=== PATIENT | female | born 1970 | race Hispanic/Latino ===

== ENCOUNTER 2018-01-17 07:43 | Inpatient (IN) | payer OTHER ==
[2018-01-11 08:41] VITALS: BMI 32.5
[2018-01-17 08:43] LABS: BASO % 0.2 % (0.0-2.0); EOS # 0.2 K/uL (0.0-0.7); EOS % 2.5 % (0.0-4.0); HEMOGLOBIN 12.6 g/dL (12.0-16.0); LYMPH # 2.2 K/uL (1.0-4.3); LYMPH % 23.6 % (20.0-40.0); MEAN CELL VOLUME 88.7 fl (81.0-99.0); MEAN CORPUSCULAR HEMOGLOBIN 28.3 pg (27.0-31.0); MEAN CORPUSCULAR HGB CONC 31.9 g/dL (33.0-37.0); MEAN PLATELET VOLUME 8.1 fl (7.2-11.7); MONO # 0.5 K/uL (0.0-0.8); MONO % 5.8 % (0.0-10.0); NEUT # 6.3 K/uL (1.8-7.0); NEUT % 67.9 % (50.0-75.0); NRBC % 0.1 % (0.0-0.0); RBC 4.44 Mil/uL (3.80-5.20); RED CELL DISTRIBUTION WIDTH 14.2 % (11.5-14.5); WHITE BLOOD COUNT 9.3 K/uL (4.8-10.8)
[2018-01-17] MEDS ORDERED: Bupivacaine HCl 0.5% PF (30 ml) Inj ONE (09:20)
[2018-01-17] MEDS ORDERED: Silver Nitrate Topical - Stick ONE (09:20)
[2018-01-17] MEDS ORDERED: Lactated Ringer's 1,000 ML IV ONE ×2 (10:15→11:34)
[2018-01-17] MEDS ORDERED: Midazolam 2 MG/2 ML VIAL ONE (10:18)
[2018-01-17] MEDS ORDERED: Propofol 10 mg/ml Inj (20 ML) ONE (10:22)
[2018-01-17] MEDS ORDERED: ePHEDrine 50 mg/ml Inj ONE (10:22)
[2018-01-17] MEDS ORDERED: Rocuronium 10 mg/ml (5 ml) ONE (10:24)
[2018-01-17] MEDS ORDERED: Succinylcholine 200 mg/10 ml Inj IV ONE (10:24)
[2018-01-17] MEDS ORDERED: Lidocaine 4% (Laryng-O-Jet) Kit MM ONE (10:24)
[2018-01-17] MEDS ORDERED: Phenylephrine 10 mg/ml Inj ONE (10:27)
[2018-01-17] MEDS ORDERED: Bupivacaine 0.5% Inj(30mL) IJ ONE (10:45)
[2018-01-17] MEDS ORDERED: Dexamethasone 4 mg/1 ml ONE (10:55)
[2018-01-17] MEDS ORDERED: Silver Nitrate Topical - Stick TOP ONE (11:30)
[2018-01-17] MEDS ORDERED: Neostigmine 1:1000 (1 mg/ml) Inj ONE (12:08)
[2018-01-17] MEDS ORDERED: DiphenhydrAMINE 50 mg/ml Inj IVP PRN (12:51)
[2018-01-17] MEDS ORDERED: Naloxone 0.4 mg/ml Inj (Adult) IVP PRN (12:52)
[2018-01-17] MEDS ORDERED: HYDROmorphone 0.5 mg/0.5 ml ISec ONE (13:04)
[2018-01-17] MEDS: HYDROmorphone 0.5 mg/0.5 ml ISec IVP PRN ×4 (13:05→13:35)
[2018-01-17] MEDS ORDERED: Oxycodone/Acetaminophen 5/325 mg Tab PO PRN (14:41)
[2018-01-17] MEDS ORDERED: Lactated Ringer's 1,000 ML IV SCH (14:45)
[2018-01-17] MEDS: Lactated Ringer's 1,000 ML IV SCH (15:09)
--- NOTE | 2018-01-17 15:11 | OP ---
PROCEDURE DATE: 01/17/2018 SURGEON: Osorio Phillips MD MINING HELPER: Milton Falcon MD ANESTHESIOLOGIST: Elisabet Saunders MD TYPE OF ANESTHESIA: General endotracheal. PREOPERATIVE DIAGNOSES: 1. Incapacitating pelvic pain. 2. Incapacitating abdominal pain. 3. Abnormal uterine bleeding. 4. History of pelvic endometriosis . 5. History of pelvic adenomyosis POSTOPERATIVE DIAGNOSES: 1. Incapacitating pelvic pain. 2. Incapacitating abdominal pain. 3. Abnormal uterine bleeding. 4. History of pelvic endometriosis . 5. History of pelvic adenomyosis PROCEDURES PERFORMED: 1. Exam under anesthesia. 2. Cystoscopy. 3. Bilateral ureteral catheterization and injection of IC-Green dye. 4. Robotic da Libertad operative laparoscopy. 5. Robotic total hysterectomy 6. Robotic Bilateral salpingectomy Dr. Falcon to dictate ureterolysis separately COMPLICATIONS: None. SAMPLES SENT: 1. endometriosis. 2. uterus and cervix 3. left and right fallopiamn tubes INDICATION FOR THE PROCEDURE AND CONSENT: The patient had a long history of pelvic pain, dysmenorrhea, dyspareunia, abdominal pain, and bladder pain. The patient had been thoroughly evaluated and counseled regarding the pros and cons of the procedure, the reasonable alternatives, and possible complications. She understood and accepted the risks involved. Literature was provided to the patient. The patient was understanding and given her history and per surgical exam, she was at high risk in an average patient. She accepted all the risks involved, and all the questions had been answered to her satisfaction. FINDINGS OF SURGERY: Genitalia: Normal external genitalia, cervix without lesion and polyps. Hysteroscopy: Hysteroscopy shows a clear uterine cavity with no polyps or masses noticed. Cystoscopy: The cystoscopy was performed to rule out endometriosis and also any interstitial cystitis and also injury. The bladder was normal with no evidence of stone, trigonitis, or cystitis. A positive jet flow was identified in both ureters. Laparoscopy: The upper abdomen appeared to be normal. Gallbladder was normal. Liver edges appeared to be normal. Ascending colon and transverse were normal. There was evidence of adhesions, fibrosis, and endometriosis of the rectovaginal and pelvic sidewalls.The uterus was enlarged and boggy. DESCRIPTION OF THE PROCEDURE: Initiation of the case: After adequate anesthesia was obtained, the patient was placed in the dorsal lithotomy position, and with extreme care, placement of the patient with hyperextension and hyperflexing of the hips. At this point, the patient was prepped and draped. The surgeon was gowned and gloved. A timeout was taken according to the hospital procedure and the procedure was started. At this point, we performed cystoscopy, bilateral ureteral catheterization. A cystoscope was inserted into the bladder under direct visualization and the bladder was visualized. The bladder was free of lesions and tumors. There was no evidence of interstitial cystitis, and there was only mild amount of trigonitis. At this point, both ureters were identified and appeared to be in their normal anatomical position. At this point, utilizing an open 5-Latvian open-ended catheter, the left ureter was catheterized all the way to the distal ureter, and 5 mL of IC-Green was injected into this ureter. Similarly, the contralateral ureter was catheterized all the way to the distal ureter, and 5 mL of IC-Green was injected into the distal ureter. At this point, the stents were removed, and the cystoscope was removed, and the 16-Latvian Espinoza was inserted into the bladder. At this point, we proceeded with placement of a trocar and docking of the da Libertad Xi robot. The surgeon was re-gowned and gloved, and open laparoscopy was performed by making incision in the umbilicus and the fascia was incised. The peritoneum was entered in a blunt fashion, and the cannula was inserted under direct visualization. The abdomen was insufflated, and under direct visualization, three additional ports were inserted in the left upper quadrant, left mid quadrant, and right upper quadrant. At this point, the da Libertad Xi robot was brought into the field and docked, and the instruments were inserted under direct visualization. All this with extreme care not to injure the bowel or another area. As per dictation, the upper abdomen appeared to be normal with no evidence of any lesions. Dr falcon performed a partial ureterolysis At this point, we proceeded with a left salppingectomy the left tube was excised and removed via the cancer genetics assistant port At this point, we proceeded with a right salppingectomy the right tube was excised and removed via the cancer genetics assistant port At this point, we proceeded with a hysterectomy The ureter was identified again utilizing fluorescent technology on the right hand side and the utero ovarian ligament was voagulated and cut. The round ligament was coagulated and cut . A bladder flap was developed anteriorly, the left round ligament and the left uteroovarian was cut. After identifying ureters bilaterally the uterine vessels were coagulated and cut. The cuff was then cut circunferentially. the uterus was bivalved and removed vaginally. The cuff was then closed with a running suture of 2.0 vlock suture. At this point, it was checked for hemostasis and appeared to be excellent. At this point, the da Libertad Xi robot was removed. The abdomen was desufflated, and the incisions were closed in layers with 0 PDS for the fascia and 4-0 Monocryl for the skin. At the end of the procedure, all tips and instrument counts were correct. The patient tolerated the procedure well and was taken to the recovery room in excellent condition. Jacqueline HERNANDEZ, Osorio LUNA
[2018-01-18] MEDS: Lactated Ringer's 1,000 ML IV SCH ×2 (00:01→07:42)
[2018-01-18 05:21] VITALS: O2SAT 100
[2018-01-18 06:20] LABS: HEMOGLOBIN 11.3 g/dL (12.0-16.0); LYMPH # 1.3 K/uL (1.0-4.3); LYMPH % 8.9 % (20.0-40.0); MEAN CORPUSCULAR HEMOGLOBIN 28.4 pg (27.0-31.0); MEAN CORPUSCULAR HGB CONC 32.3 g/dL (33.0-37.0); MEAN PLATELET VOLUME 8.2 fl (7.2-11.7); MONO # 0.4 K/uL (0.0-0.8); MONO % 2.9 % (0.0-10.0); NEUT # 13.2 K/uL (1.8-7.0); NEUT % 88.2 % (50.0-75.0); PLATELET COUNT 219 K/uL (130-400); RBC 3.99 Mil/uL (3.80-5.20); RED CELL DISTRIBUTION WIDTH 14.1 % (11.5-14.5); WHITE BLOOD COUNT 14.9 K/uL (4.8-10.8)
[2018-01-18 06:26] LABS: BLOOD UREA NITROGEN 8 mg/dl (7-17); CALCIUM 8.9 mg/dL (8.4-10.2); GFR NON-AFRICAN AMERICAN > 60
[2018-01-18 08:42] LABS: BANDS 2 % (0-2); HYPOCHROMIC SLIGHT; LYMPHOCYTE 9 % (20-50); MONOCYTE 2 % (0-10); NEUTROPHIL 86 % (42-75); PLATELET ESTIMATE NORMAL (NORMAL); REACTIVE LYMPHOCYTES 1 % (0-0); TOTAL CELLS COUNTED 100
[2018-01-18 09:27] VITALS: BP 106/57; PULSE 81; RESP 16; TEMP 97.7
== END 2018-01-18 12:05 | disposition home or self-care (01) | DRG 742 ==
LOC: H.OPSURG 07:43 → H.ERHOLD 14:41 → H.PEDS 15:58
PROVIDERS: ADMIT Obstetrics & Gynecology Reproductive Endocrinology; ATTEND Obstetrics & Gynecology Reproductive Endocrinology
PROC: 0DBW0ZZ Excision of Peritoneum, Open Approach (ICD-10-PCS; 2018-01-17)
PROC: 0UBF0ZZ Excision of Cul-de-sac, Open Approach (ICD-10-PCS; 2018-01-17)
PROC: 0DBP0ZZ Excision of Rectum, Open Approach (ICD-10-PCS; 2018-01-17)
PROC: 0UB90ZZ Excision of Uterus, Open Approach (ICD-10-PCS; 2018-01-17)
PROC: 0TJB8ZZ Inspection of Bladder, Via Natural or Artificial Opening Endoscopic (ICD-10-PCS; principal; 2018-01-17 11:00)
PROC: 0UB10ZZ Excision of Left Ovary, Open Approach (ICD-10-PCS; 2018-01-17 11:00)
DX: N80.3 Endometriosis of pelvic peritoneum (principal); N13.4 Hydroureter; N93.9 Abnormal uterine and vaginal bleeding, unspecified; N80.1 Endometriosis of ovary; N80.5 Endometriosis of intestine; N80.8 Other endometriosis; N94.10 Unspecified dyspareunia; N94.6 Dysmenorrhea, unspecified; N80.0 Endometriosis of uterus; N80.4 Endometriosis of rectovaginal septum and vagina